=== PATIENT | female | born 1965 ===

== ENCOUNTER 2017-10-28 20:11 | Emergency (ER) | payer BC ==
[~2017-10-28] VITALS: Ht 165.1 cm; Wt 81.6 kg
[2017-10-28 20:25] VITALS: BP 137/88; Ht 165.1 cm; Wt 81.6 kg
== END 2017-10-29 00:12 | disposition home or self-care (01) ==
LOC: ED 20:11
DX: J18.9 Pneumonia, unspecified organism (principal)